=== PATIENT | female | born 1960 | race Caucasian/White ===

== ENCOUNTER 2017-03-15 09:58 | Day surgery (SDC) | payer MEDICAID ==
[~2017-03-15] VITALS: Ht 154.9 cm; Wt 52.7 kg
[~2017-03-15 09:58] MED LIST: MORP1TAB25 PO; PANT20TA2 PO
[2017-03-15] MEDS ORDERED: SODIUM CHLOR 0.9% 1000 ML IV SCH (10:00)
[2017-03-15 10:11] VITALS: BP 142/82; PULSE 87; RESP 18; TEMP 98.2; O2SAT 100
[2017-03-15] MEDS ORDERED: CYCL1TAB29 PO (10:12)
[2017-03-15] MEDS ORDERED: SODIUM CHLORIDE 0.9% FLUSH 10 ML FLUSH IV FLUSH PRN (10:45)
[2017-03-15] MEDS ORDERED: IMPLANTED VASCULAR ACCESS DEVICE/PORT - SODIUM CHLORIDE FLUSH IV FLUSH SCH (10:45)
[2017-03-15] MEDS ORDERED: IMPLANTED VASCULAR ACCESS DEVICE/PORT - SODIUM CHLORIDE FLUSH PRN IV FLUSH (10:45)
[2017-03-15] MEDS ORDERED: LIDOCAINE 1%/EPINEPHrine 1:100,000 SOLN 20 ML VIAL ONE (11:24)
--- NOTE | 2017-03-15 14:05 | RADRPT ---
EXAM DATE/TIME: 03/15/2017 11:52 [facility] COMPARISON: No previous studies available for comparison. INDICATIONS : Pelvic/vaginal mass. . FINDINGS: Mrs. Weiner came in for biopsy of the vaginal mass. She currently takes 30 mg of morphine today for pa in. After long discussion I reschedule her for Saturday with anesthesia sedation. Jacob Moreno MD FACR on March 15, 2017 at 14:01 Board Certified Radiologist. This report was verified electronically.
[2017-03-15] MEDS ORDERED: SODIUM CHLORIDE 0.9% FLUSH 10 ML FLUSH IV FLUSH SCH (21:00)
== END 2017-03-15 12:00 | disposition home or self-care (01) ==
LOC: HRAD 09:58 → HRIP 10:00 → HRAD 12:00
PROVIDERS: ATTEND Obstetrics & Gynecology Gynecologic Oncology
DX: R19.09 Other intra-abdominal and pelvic swelling, mass and lump (principal)
CPT/HCPCS: 99211; J1642; G0463

== ENCOUNTER 2017-03-18 09:49 | Day surgery (SDC) | payer MEDICAID ==
[~2017-03-18] VITALS: Ht 157.5 cm; Wt 52.3 kg
[~2017-03-18 09:49] MED LIST changes: +CYCL1TAB29 PO; +ONDANSETRON HCL 4 MG/2 ML VIAL IV PUSH ONE; +PROPOFOL 200 MG/20 ML AMP IV ONE
[2017-03-18 10:03] VITALS: BP 143/87; PULSE 80; RESP 18; TEMP 97.7; O2SAT 100
[2017-03-18] MEDS ORDERED: SODIUM CHLORIDE 0.9% FLUSH 10 ML FLUSH IV FLUSH PRN ×2 (10:45)
[2017-03-18] MEDS ORDERED: SODIUM CHLOR 0.9% 1000 ML IV SCH (10:45)
[2017-03-18] MEDS ORDERED: IMPLANTED VASCULAR ACCESS DEVICE/PORT - SODIUM CHLORIDE FLUSH IV FLUSH SCH (10:45)
[2017-03-18] MEDS ORDERED: IMPLANTED VASCULAR ACCESS DEVICE/PORT - SODIUM CHLORIDE FLUSH PRN IV FLUSH (10:45)
[2017-03-18] MEDS ORDERED: LIDOCAINE 1%/EPINEPHrine 1:100,000 SOLN 20 ML VIAL ONE (11:12)
[2017-03-18] MEDS ORDERED: DO NOT ADM ANY ANTICOAGULANT DRUGS PRN (13:30)
--- NOTE | 2017-03-18 13:46 | RADRPT ---
EXAM DATE/TIME: 03/18/2017 12:45 [facility] COMPARISON: No previous studies available for comparison. INDICATIONS : Mass. BIOPSY SITE: Right vaginal oriface/perineal region Anesthesia and pain control was provided by the Anesthesia department. Prophylactic antibiotics were administered with appropriate pre-procedure timing. Vancomycin within 2 hrs of procedure, Ancef (or alternative) within 1 hr of procedure start. Intra-procedural antibiotics were given as prescribed above. DEVICE(S): 1.) 18 gauge Calixto blunt needle 2.) 20 gauge Temno core biopsy needle MEDICAL HISTORY : Hepatitis C. cevical cancer, myeloid leukemia, multiple sclerosis SURGICAL HISTORY : Hysterectomy. Appendectomy. ENCOUNTER: Initial ACUITY: 1 day PAIN SCORE: 0/10 LOCATION: Bilateral pelvis A total of three core specimen(s) were obtained and sent to the laboratory for pathologic evaluation. PROCEDURE: 1. CT guided pelvic biopsy. 3. EKG and oximetry remained stable throughout the procedure. Prior to the procedure informed consent was obtained. Any appropriate prior imaging studies were rev iewed. Using automated exposure control and adjustment of the mA and/or kV according to patient size, radiat ion dose was kept as low as reasonably achievable to obtain optimal diagnostic quality images. DICOM format image data is available electronically for review and comparison. The site was prepped in a sterile fashion. Full sterile technique was used, including cap, mask, uri rile gloves and gown and a large sterile sheet. Hand hygiene and 2% chlorhexidine and/or betadine/al cohol prep was utilized per protocol for cutaneous antisepsis. The skin and subcutaneous tissues wer e infiltrated with local anesthetic solution. Under CT guidance an 18 gauge blunt needle was placed down to the PET positive mass may prone posteri or approach. 3 cores were obtained. One slide was submitted. Follow-up CT scan reveals no hemorrhage. The patient tolerated the procedure well and there were no complications. The patient was returned to the Radiology Outpatient Unit in stable condition. CONCLUSION: Uncomplicated CT guided biopsy PET positive perivaginal soft tissue mass in this derrick ent with history of cervical carcinoma. Diagnosed used to minimize needle tracking. Jacob mckeon MD FACR on March 18, 2017 at 13:43 Board Certified Radiologist. This report was verified electronically.
[2017-03-18] MEDS ORDERED: *morphine SULFATE 8 MG/ML PERIprocedure ONLY ONE (13:58)
[2017-03-18] MEDS ORDERED: oxyCODONE/ACETAMINOPHEN 5 MG/325 MG TAB PO PRN (14:00)
[2017-03-18 14:15] VITALS: BP 111/70; PULSE 82; RESP 18; TEMP 98.2; O2SAT 99
[2017-03-18 14:30] VITALS: BP 134/66; PULSE 99; RESP 18; O2SAT 100
[2017-03-18 15:00] VITALS: BP 122/79; PULSE 89; RESP 18; O2SAT 98
[2017-03-18 15:30] VITALS: BP 107/81; PULSE 89; RESP 18; O2SAT 99
== END 2017-03-18 16:03 | disposition home or self-care (01) ==
LOC: HRIP 09:49 → HROP 09:49
PROVIDERS: ATTEND Nurse Practitioner Family
DX: C76.3 Malignant neoplasm of pelvis (principal); C53.9 Malignant neoplasm of cervix uteri, unspecified; B19.20 Unspecified viral hepatitis C without hepatic coma; G35 Multiple sclerosis
CPT/HCPCS: 00800; 49180; 77012; 88307; 88333; J1642; J2270; J2405; J3010; 88305

== ENCOUNTER → 2017-11-14 | Outpatient (CLI) | payer MEDICAID ==
[~2017-11-14] MED LIST changes: +CYCL10TA PO; -CYCL1TAB29 PO; +MORP1CAP81 PO; +MULT-65 PO; -ONDANSETRON HCL 4 MG/2 ML VIAL IV PUSH ONE; -PROPOFOL 200 MG/20 ML AMP IV ONE
--- NOTE | 2017-11-15 14:34 | EKG ---
Date Performed: 11/14/2017 Time Performed: 11:56:05 PTAGE: 57 years EKG: Sinus rhythm NORMAL ECG PREVIOUS TRACING : 07/03/2016 11.53 Since the prior tracing, there has been no significant awan DOCTOR: Kassy Rankin Interpretating Date/Time 11/15/2017 14:32:48
== END ==
LOC: CPRE 10:59
PROVIDERS: ATTEND Obstetrics & Gynecology Gynecologic Oncology
DX: Z01.810 Encounter for preprocedural cardiovascular examination (principal); Z01.811 Encounter for preprocedural respiratory examination; Z01.812 Encounter for preprocedural laboratory examination; Z01.818 Encounter for other preprocedural examination; Z85.41 Personal history of malignant neoplasm of cervix uteri; C53.1 Malignant neoplasm of exocervix
CPT/HCPCS: 93005

== ENCOUNTER → 2017-11-26 | Day surgery (SDC) | payer MEDICAID ==
[~2017-11-26] VITALS: Ht 160 cm; Wt 54.5 kg
[~2017-11-26] MED LIST changes: +ACETAMINOPHEN 1000 MG/100 ML 100 ML IV ONE; +CHLORHEXIDINE GLUCONATE 2 % 1 PACK (2 CLOTHS) TOPICAL PRN; +DEXAMETHASONE SOD PHOS 4 MG/ML VIAL IV ONE; +DO NOT ADM ANY ANTICOAGULANT DRUGS PRN; +INSULIN HUMAN REGULAR 1,000 UNITS/10 ML VIAL SQ PRN; +LACTATED RINGER'S 1000 ML IV PRN; +LIDOCAINE 1%/EPINEPHrine 1:100,000 SOLN 30 ML VIAL ONE; +LIDOCAINE HCL 1% PF 5 ML SYRINGE OTHER ONE; +METOPROLOL TARTRATE 25 MG TAB PO PRN; +MIDAZOLAM HCL 2 MG/2 ML VIAL ONE; -MORP1TAB25 PO; +ONDANSETRON HCL 4 MG/2 ML VIAL IV ONE; +PHENYLEPH/NS 1000 MCG/10 ML SYR IV ONE; +POVIDONE IODINE 5% (ANTISEPSIS KIT) 4 APPLICATIONS EACH NARE PRN; +PROPOFOL 200 MG/20 ML AMP IV ONE; +SODIUM CHLORID 0.9% 500 ML IV PRN; +ZOFR4TAB PO; +oxyCODONE/ACETAMINOPHEN 5 MG/325 MG TAB PO PRN
--- NOTE | 2017-11-26 16:05 | MP ---
cc: Alexia Sanchez MD, Michael DO McNish,Mary Umanzor,Vernon Prieto MD DATE OF OPERATION: 11/26/2017 PREOPERATIVE DIAGNOSES: 1. Locally advanced cervix cancer, status post radiation and chemotherapy. 2. 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 3. Painful, ulcerative area on the vulva with firm prominence in the right vulva. POSTOPERATIVE DIAGNOSES: 1. Locally advanced cervix cancer, status post radiation and chemotherapy. 2. 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 3. Painful, ulcerative area on the vulva with firm prominence in the right vulva. PROCEDURE: Examination under anesthesia, Roberto-Cut needle biopsies x 2 plus multifocal 3 mm dermal punch biopsies x 3. SURGEON: Alexia Sanchez MD REFRIGERATION BRAZER/SOLDERER: Jonel occupational therapist assistants. ANESTHESIA: Laryngeal mask anesthesia. ESTIMATED BLOOD LOSS: Less than 10 mL. HISTORY: A 57-year-old female who had locally advanced cervical cancer, treated with radiation and Cisplatin chemotherapy. Did well for a period of time and then she had tumor develop in the right distal vagina/vulva. Squamous cell carcinoma was confirmed on biopsy. She was treated with radiation to this area and tanana chemotherapy. Recent PET scan showed no evidence of disease. Recent exam shows altered anatomy. It is uncertain if it is persistent recurrent tumor versus post-radiation anatomical changes. She has the impression that there is a prominence in the right posterior vulva that is becoming more prominent. She is naturally concerned because this was the area where the tumor at the introitus was first recognized. She was seen recently in the office. She was in favor of biopsies; however, did not believe she could tolerate biopsies in the office. She was counseled regarding exam under anesthesia, multifocal biopsies. She is seen in the preop holding area where we again counseled her regarding these findings, recommendations, and planned procedure. She expresses good understanding and would like to move forward as recommended. FINDINGS: The findings are as described in recent notes, but basically there are diffuse radiation changes, the cervix is no longer visible, as it is flush with the vaginal apex and the vaginal apex is obliterated, but the mucosa that is palpable and visible is smooth, although there is fairly moderate to severe atrophic changes throughout. There is no appreciable inguinal adenopathy. External genitalia is notable for very thickened skin and mucosa, post-radiation changes. There is an ulcerated area, approximately 1.5 cm, maybe 2 cm at most in greatest dimension at the introitus at the 7 o'clock position. The firmness about which she is concerned is in the vulva 7 o'clock position on the right side, but the overlying skin appears normal in that there is no ulceration, no mass, but there is a firmness there, induration, about which she is concerned as well. The remainder of the mucosa is inspected including the periurethral area that appeared erythematous in clinic, but is very smooth. There is no mass or nodularity. There is no other mass effect, skin breakdown, or suspicious changes elsewhere and the anatomy that is most deviated from normal is in the region of the posterior right vulva, right introitus, and distal vagina and it is this region where biopsies are concentrated. DESCRIPTION OF PROCEDURE: She is taken to the operating room and placed in the dorsal lithotomy position after laryngeal mask anesthesia was administered. Time-out was undertaken, she was identified by sight recognition and hospital ID bracelet, and the proposed procedure was reviewed and confirmed. Given her recent foot injury, her right foot and ankle are packed in foam padding, stabilizing the position at the normal right angle (in which she was wearing her protective boot). Her foot was placed in stirrup in that position and padded as described. Left foot also placed in stirrups. She was placed in the lithotomy position. Exam under anesthesia was performed, findings as described above. She was prepped, draped in sterile fashion. In-and-out catheterization of the bladder was performed. The sites that appeared most abnormal and billing representative for biopsies were marked with a surgical marker. Lidocaine and epinephrine was injected in these areas and 5 sites were chosen to obtain biopsies. Dermal punch biopsies were performed and labeled #1 distal introitus 7 o'clock; #2 proximal introitus 7 o'clock; specimen #4 was also punch biopsy posterior distal vagina 6 o'clock. Now, a Roberto-Cut needle biopsy was performed which corresponded to specimen #3 right vulva 7 o'clock and specimen #5 which was right introitus 8 o'clock. These last 2 specimens were Roberto-Cut needle biopsies with several passes, obtaining satisfactory amount of tissue. All sites were inspected. The bases were rendered hemostatic with Monsel solution and then [id number] 3-0 Vicryl sutures were placed over each biopsy site, rendering them completely hemostatic with skin and/or mucosa well approximated. Exam confirmed there were no remaining foreign objects in the vagina. Preliminary and final counts were correct. She was returned to dorsal supine position and was pending reversal of anesthesia when I left the operating room to precede her to the post-anesthesia care unit. Alexia Sanchez MD KLM/TI , 03:36 PM , 04:03 PM
[2017-11-26 16:50] VITALS: BP 128/76; PULSE 86; RESP 18; TEMP 97.8; O2SAT 98
== END | disposition home or self-care (01) ==
LOC: HSDC 11:22
PROVIDERS: ATTEND Obstetrics & Gynecology Gynecologic Oncology
DX: C53.9 Malignant neoplasm of cervix uteri, unspecified (principal); C51.9 Malignant neoplasm of vulva, unspecified; N76.6 Ulceration of vulva; Z92.21 Personal history of antineoplastic chemotherapy; Z92.3 Personal history of irradiation
CPT/HCPCS: 00940; 56605; 56606; 86850; 86900; 86901; 88305; J0131; J1100; J2250; J2370; J2405; J3010; J7120

== ENCOUNTER → 2018-01-21 | Day surgery (SDC) | payer MEDICAID ==
[~2018-01-21] MED LIST changes: +ACETAMINOPHEN 1000 MG/100 ML 0 ML IV ONE; -ACETAMINOPHEN 1000 MG/100 ML 100 ML IV ONE; +ESMOLOL HCL 100 MG/10 ML VIAL IV ONE; +FAMOTIDINE 20 MG/2 ML VIAL ONE; +HYDROmorphone HCL PF 0.5 MG/0.5 ML SYRINGE ONE; -INSULIN HUMAN REGULAR 1,000 UNITS/10 ML VIAL SQ PRN; +KETOROLAC TROMETHAMINE 30 MG/ML (IVP) VIAL IV PUSH ONE; +LACTATED RINGER'S 1000 ML INJ 1,000 ML IV ONE; +OXYC-395 PO; -PHENYLEPH/NS 1000 MCG/10 ML SYR IV ONE; +oxyCODONE/ACETAMINOPHEN 5 MG/325 MG TAB ONE
[2018-01-21 15:01] VITALS: BP 157/83; PULSE 80; RESP 18; TEMP 98; O2SAT 97
--- NOTE | 2018-01-22 15:17 | MP ---
cc: Alexia Sanchez MD,Vernon Heredia,Mary Be,Jaziel BANKS DATE OF OPERATION: 01/21/2018 DATE OF PROCEDURE: 01/21/2018. PREOPERATIVE DIAGNOSES: 1. History of locally advanced cervix cancer status post radiation and chemotherapy. 2. Locally advanced vulvar cancer status post radiation and chemotherapy. 3. Distal vaginal and vulvar ulcerations, nonhealing, pain, discharge. POSTOPERATIVE DIAGNOSES: 1. History of locally advanced cervix cancer status post radiation and chemotherapy. 2. Locally advanced vulvar cancer status post radiation and chemotherapy. 3. Distal vaginal and vulvar ulcerations, nonhealing, pain, discharge. PROCEDURE: Examination under anesthesia, sharp debridement of necrotic tissue from the vulva, perineum and distal vagina. SURGEON: Alexia Sanchez MD MALL PLANT CARETAKER: Jonel goengineer first assistant. ANESTHESIA: Laryngeal mask anesthesia. 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 She did well without evidence of disease and continues to have no evidence of disease in the region of the cervix. She developed a mass at the right introitus at the 7 o'clock position at the junction of the vagina and the vulva. Biopsy showed squamous cell carcinoma. It was remote from the cervix and was thought most consistent with a second primary tumor. This was treated with radiation and cisplatin chemotherapy. She had a complete response to treatment. Within recent weeks, she was taken for examination under anesthesia where multifocal biopsies were performed. All biopsies showed chronic inflammation and necrosis, radiation changes, but no evidence of active tumor. She continues to have persistent pain at times debilitating with serous, sometimes sanguineous discharge. She is under pain management's care, but her symptoms persist. She was seen and evaluated in the office, where we were offered another exam under anesthesia with sharp debridement to try to remove the necrotic tissue, to cut it back to healthy tissue to see if that can help stimulate healing and any tissue removed would be sent again for histopathologic analysis. She agreed, was in favor of this. She was seen again in the preop holding area where the findings and plan of care are again discussed and reviewed. She understands and wishes to move forward. FINDINGS: As previously described, there is ulcerative nonhealing tissue at introitus starting from approximately the 3 o'clock position on the left vulva, extending clockwise across the perineum to the 10 o'clock position on the right vulva and extending into the distal vagina. There is some attenuation of the perineal body due to tissue necrosis with a central ulceration just proximal to the anal sphincter in the perineum/distal vagina. The necrotic ulcerative tissue was somewhat diffuse and contiguous. There is no area that looks overtly like recurrent disease. PROCEDURE: She was taken to the operating room and placed in dorsal lithotomy position. After general endotracheal anesthesia was administered, timeout was undertaken. She was identified by site recognition and hospital ID brasb and the proposed procedure was reviewed and confirmed. Exam under anesthesia was performed with findings as described above. She was prepped and draped in sterile fashion. Lidocaine with epinephrine was injected to all areas that appeared abnormal. Sharp debridement with the scissors was used to excise the necrotic tissue until all areas of the surface necrotic tissue had been removed and the tissue was showing evidence of bleeding throughout. Then, a sharp curet was used for further curetting to remove any residual necrotic tissue and now the base was all showing active bleeding and it was felt that all reasonable surgical objectives had been completed. Pressure was held on the defect which was showing good blood supply until Surgicel SNoW product was placed in the defect, which rendered it hemostatic. There were no remaining foreign objects in the vagina other than the intentionally placed hemostatic agent. Preliminary and final counts were correct. She was returned to dorsal supine position and was pending reversal of anesthesia when I left the operating room to precede her to the Postanesthesia Care Unit. MD THIEN Booth/MIGDALIA , 02:44 PM , 03:15 PM
== END | disposition home or self-care (01) ==
LOC: HSDC 10:53
PROVIDERS: ATTEND Obstetrics & Gynecology Gynecologic Oncology
DX: N76.6 Ulceration of vulva (principal); L59.8 Other specified disorders of the skin and subcutaneous tissue related to radiation; R10.2 Pelvic and perineal pain; F17.210 Nicotine dependence, cigarettes, uncomplicated; Z92.21 Personal history of antineoplastic chemotherapy; Z92.3 Personal history of irradiation; Z85.41 Personal history of malignant neoplasm of cervix uteri
CPT/HCPCS: 00940; 11043; 57410; 86850; 86900; 86901; 88304; J1100; J1170; J1885; J2250; J2405; J3010; J7120; 88305; J0131